=== PATIENT | male | born 1945 | race Hispanic/Latino ===

== ENCOUNTER 2024-06-18 09:44 | Inpatient (IN) | payer OTHER ==
[2024-06-18 10:19] LABS: #Basophils 0.03 10x3/uL (0.0-0.2); #Eosinphils 0.03 10x3/uL (0.0-0.5); #Monocytes 0.89 10x3/uL (0.0-1.1); #Neutrophils 14.83 10x3/uL (1.5-8.4); %Basophils 0.2 % (0.0-2.0); %Eosinophils 0.2 % (0.0-6.0); %Monocytes 5.4 % (0.0-10.0); %Neutrophils 89.2 % (40.0-75.0); Hematocrit 35.1 % (38.8-50.0); Hemoglobin 11.5 g/dL (13.5-17.5); Mean Corpuscular HGB CONC 32.8 g/dL (32.0-36.0); Mean Corpuscular Hemoglobin 27.7 pg (27.0-33.0); Mean Corpuscular Volume 84.6 fL (81.2-95.1); Mean Platelet Volume 11.2 fL (7.4-10.4); Platelet Count 254 10x3/uL (150-450); RBC Distribution Width 15.3 % (11.5-14.5); Red Blood Cell (RBC) Count 4.15 10x6/uL (4.32-5.72); White Blood Cell (WBC) Count 16.6 10x3/uL (3.5-10.5)
[2024-06-18] MEDS ORDERED: Ondansetron PF 4 MG/2 ML Vial ONE (10:33)
[2024-06-18 10:39] LABS: ALT (SGPT) 11 U/L (8-55); AST (SGOT) 8 U/L (5-34); Albumin 2.1 g/dL (3.4-4.8); Alkaline Phosphatase 129 U/L (40-110); Anion Gap 19 mmol/L (10-20); BUN (Urea Nitrogen) 107 mg/dL (8.4-25.7); Bilirubin, Total 0.8 mg/dL (0.2-1.2); Calc. Creatinine Clearance 0 mL/min (70-130); Calcium 8.9 mg/dL (7.8-10.44); Carbon Dioxide 18 mmol/L (23-31); Chloride 99 mmol/L (98-107); Estimated GFR 18; Globulin 4.4 g/dL (2.4-3.5); Potassium 4.9 mmol/L (3.5-5.1); Protein, Total 6.5 g/dL (5.8-8.1); Sodium 131 mmol/L (136-145)
[2024-06-18 10:50] LABS: Critical Call Chemistry NUR.JF4 @1049; Glucose 457 mg/dL (83-110)
[2024-06-18] MEDS ORDERED: Insulin Regular, Human 100 UNIT/ML 10 ML VIAL ONE (11:08)
[2024-06-18 11:20] LABS: Phosphorus 3.1 mg/dL (2.3-4.7)
[2024-06-18 11:22] LABS: Magnesium 2.3 mg/dL (1.6-2.6)
[2024-06-18] MEDS ORDERED: cefTRIAXone (ROCEPHIN) 2 GM VIAL ONE (11:39)
[2024-06-18 11:59] LABS: Actual Bicarbonate (HCO3v) 20.7 mEq/L (22-28); Analyzer IN Cardio CS ER; Base Excess -5.4 mEq/L (-2 - +2); Calcium, Ionized (venous) 1.13 mmol/L (1.16-1.32); Chloride (VBG) 99 mmol/L (98-106); Hematocrit-VBG 37 % (42.0-52.0); Hemoglobin (Hb) 12.6 g/dL (12.6-17.4); Potassium (VBG) 4.79 mmol/L (3.70-5.30); Puncture Site Other Site; RapidComm Collect By LAB; Sodium 131 mmol/L (133-146); pH (venous) 7.304 (7.32-7.43)
[2024-06-18] MEDS ORDERED: Acetaminophen 325 MG TAB PO PRN (13:50)
[2024-06-18] MEDS ORDERED: traMADol HCl 50 MG TAB PO PRN (13:50)
[2024-06-18] MEDS ORDERED: Acetaminophen/Codeine 30-300mg Tablet PO PRN (13:50)
[2024-06-18] MEDS ORDERED: Dextrose 50% Abboject 50 ML SYRINGE SLOW IVP PRN (13:52)
[2024-06-18] MEDS ORDERED: Glucagon 1 MG/ML KIT IM PRN (13:52)
[2024-06-18] MEDS ORDERED: Dextrose 5% in Water 1,000 ML IV PRN (13:52)
[2024-06-18 14:39] LABS: Bilirubin Neg (Negative); Blood, Urine 250 (Negative); Glucose, Urine (Dipstick) 250 mg/dL (Negative); Ketone, Urine 5 mg/dL (Negative); Leukocyte 500 (Negative); Nitrite Negative (Negative); Protein, Urine (Dipstick) 100 mg/dl (Neg-Trace); Specific Gravity, Urine 1.015 (1.005-1.030); Urobilinogen Normal mg/dL (Less than 2)
[2024-06-18 14:46] VITALS: BMI 25.0
[2024-06-18 14:52] LABS: Clarity Turbid (Clear)
[2024-06-18 14:59] LABS: Bacteria/HPF 4+ HPF (None Seen); CAUTI Indications for Culture Pelvic or flank pain; WBC/HPF Greater than 50 HPF (0-3)
[2024-06-18 15:03] LABS: Urine Culture Reflex Yes Yes
[2024-06-18] MEDS ORDERED: Simethicone Chewable 80 MG TAB PO PRN (15:05)
[2024-06-18] MEDS: Lantus 1000 UNITS/10 ML VIAL SC SCH ×2 (15:18→20:48)
[2024-06-18] MEDS: Lactated Ringer's 1,000 ML IV SCH ×2 (15:18→18:26)
[2024-06-18] MEDS: Piperacillin/Tazobactam 3.375 GM in Sodium Chloride 0.9% 100 ML IVPB SCH ×2 (16:43→20:47)
[2024-06-18 17:14] LABS: Anion Gap 17 mmol/L (10-20); BUN (Urea Nitrogen) 92 mg/dL (8.4-25.7); Calc. Creatinine Clearance 22 mL/min (70-130); Calcium 8.8 mg/dL (7.8-10.44); Carbon Dioxide 18 mmol/L (23-31); Chloride 105 mmol/L (98-107); Estimated GFR 22; Glucose 315 mg/dL (83-110); Potassium 4.7 mmol/L (3.5-5.1); Sodium 135 mmol/L (136-145)
[2024-06-18] MEDS: Atorvastatin Calcium 40 MG TAB PO SCH (20:48)
[2024-06-18] MEDS: Famotidine/PF 20 mg/2ml Vial SLOW IVP SCH (20:48)
[2024-06-18] MEDS: Insulin Lispro 100 UNIT/ML 10 ML VIAL SC PRN (23:42)
[2024-06-19 06:07] LABS: #Basophils 0.04 10x3/uL (0.0-0.2); #Eosinphils 0.13 10x3/uL (0.0-0.5); #Monocytes 1.07 10x3/uL (0.0-1.1); #Neutrophils 17.29 10x3/uL (1.5-8.4); %Basophils 0.2 % (0.0-2.0); %Eosinophils 0.7 % (0.0-6.0); %Lymphocytes 5.6 % (18.0-47.0); %Monocytes 5.4 % (0.0-10.0); Hematocrit 32.8 % (38.8-50.0); Hemoglobin 10.9 g/dL (13.5-17.5); Mean Corpuscular HGB CONC 33.2 g/dL (32.0-36.0); Mean Corpuscular Hemoglobin 27.7 pg (27.0-33.0); Mean Corpuscular Volume 83.5 fL (81.2-95.1); Mean Platelet Volume 11.2 fL (7.4-10.4); Platelet Count 281 10x3/uL (150-450); RBC Distribution Width 15.3 % (11.5-14.5); Red Blood Cell (RBC) Count 3.93 10x6/uL (4.32-5.72); White Blood Cell (WBC) Count 19.9 10x3/uL (3.5-10.5)
[2024-06-19 06:17] LABS: Anion Gap 12 mmol/L (10-20); BUN (Urea Nitrogen) 86 mg/dL (8.4-25.7); Calc. Creatinine Clearance 22 mL/min (70-130); Calcium 8.5 mg/dL (7.8-10.44); Carbon Dioxide 20 mmol/L (23-31); Chloride 109 mmol/L (98-107); Estimated GFR 22; Glucose 161 mg/dL (83-110); Sodium 137 mmol/L (136-145)
[2024-06-19] MEDS: Aspirin 81 mg Enteric Coated Tablet PO SCH (08:15)
[2024-06-19] MEDS: Pantoprazole DR 40 MG TAB PO SCH (08:15)
[2024-06-19] MEDS: DULoxetine 30 MG CAP PO SCH (08:15)
[2024-06-19] MEDS: Heparin 5,000 UNITS/ML VIAL SC SCH (08:15)
[2024-06-19 11:30] LABS: Hemoglobin A1c 8.8 % (4.0-6.0)
[2024-06-19] MEDS: Docusate 100 MG CAP PO SCH (21:31)
[2024-06-19 21:59] VITALS: BP 142/67; TEMP 97.5
== END 2024-06-19 22:50 | disposition left against medical advice (07) | DRG 871 ==
LOC: EEVIPCON 09:44 → CSHERS 09:44 → CSHTELE 13:34
PROVIDERS: ADMIT Family Medicine; ATTEND Internal Medicine
DX: A41.89 Other specified sepsis (principal); E11.10 Type 2 diabetes mellitus with ketoacidosis without coma; N17.9 Acute kidney failure, unspecified; N10 Acute pyelonephritis; E11.51 Type 2 diabetes mellitus with diabetic peripheral angiopathy without gangrene; I10 Essential (primary) hypertension; E78.5 Hyperlipidemia, unspecified; B96.89 Other specified bacterial agents as the cause of diseases classified elsewhere; R91.1 Solitary pulmonary nodule; F41.9 Anxiety disorder, unspecified; K21.9 Gastro-esophageal reflux disease without esophagitis
CPT/HCPCS: 36415; 36416; 74176; 80048; 80053; 81001; 82010; 82805; 83036; 83605; 83690; 83735; 84100; 85025; 87040; 87077; 87086; 87149; 87186; J0696; J1644; J1815; J2405; J2543; J3490; J7120